=== PATIENT | female | born 1940 | race Caucasian/White ===

== ENCOUNTER 2017-09-09 06:50 | Emergency (ER) | payer MEDICARE | END 2017-09-09 07:58 | disposition home or self-care (01) | LOC: EDH 06:50 | DX: S59.801A Other specified injuries of right elbow, initial encounter (principal); S69.81XA Other specified injuries of right wrist, hand and finger(s), initial encounter; Z90.710 Acquired absence of both cervix and uterus; Z98.890 Other specified postprocedural states; W18.39XA Other fall on same level, initial encounter; Y93.89 Activity, other specified; Y92.89 Other specified places as the place of occurrence of the external cause; Y99.8 Other external cause status | CPT/HCPCS: 29125; 73080; 73110; 73130 ==

== ENCOUNTER 2017-11-15 08:39 | Emergency (ER) | payer MEDICARE ==
[2017-11-15] MEDS ORDERED: DEXAMETHASONE SOD PHOSPHATE 10MG/ML 1ML VIAL ONE (09:24)
[2017-11-15] MEDS ORDERED: KETOROLAC TROMETHAMINE 15MG/ML ONE (09:25)
[2017-11-15] MEDS ORDERED: ORPHENADRINE CITRATE 30 MG/ML ML ONE (09:25)
== END 2017-11-15 10:20 | disposition home or self-care (01) ==
LOC: EDH 08:39
DX: S16.1XXA Strain of muscle, fascia and tendon at neck level, initial encounter (principal); M54.6 Pain in thoracic spine; Z90.710 Acquired absence of both cervix and uterus; X58.XXXA Exposure to other specified factors, initial encounter; Y93.89 Activity, other specified; Y92.89 Other specified places as the place of occurrence of the external cause; Y99.8 Other external cause status
CPT/HCPCS: 72040; 96374; 96375; 99284; J1100; J1885; J2360

== ENCOUNTER → 2018-10-02 | Outpatient (CLI) | payer MEDICARE | END | disposition home or self-care (01) | LOC: RAH 13:04 | PROVIDERS: ATTEND Internal Medicine | DX: M47.816 Spondylosis without myelopathy or radiculopathy, lumbar region (principal); M48.061 Spinal stenosis, lumbar region without neurogenic claudication | CPT/HCPCS: 72131 ==

== ENCOUNTER 2019-07-11 06:42 | Emergency (ER) | payer MEDICARE ==
[2019-07-11] MEDS ORDERED: KETOROLAC TROMETHAMINE 30MG/ML ONE (07:36)
[2019-07-11] MEDS ORDERED: DIAZEPAM 2 MG TAB ONE (07:36)
[2019-07-11] MEDS ORDERED: DEXAMETHASONE SOD PHOSPHATE 10MG/ML 1ML VIAL ONE (07:47)
== END 2019-07-11 09:38 | disposition home or self-care (01) ==
LOC: EDH 06:42
DX: S16.1XXA Strain of muscle, fascia and tendon at neck level, initial encounter (principal); M62.838 Other muscle spasm; Z90.710 Acquired absence of both cervix and uterus; Z98.890 Other specified postprocedural states; X58.XXXA Exposure to other specified factors, initial encounter; Y93.89 Activity, other specified; Y92.89 Other specified places as the place of occurrence of the external cause; Y99.8 Other external cause status
CPT/HCPCS: 96372 ×2; 99284; J1100; J1885